=== PATIENT | female | born 1970 | race Caucasian/White ===

== ENCOUNTER 2016-07-28 10:27 | Emergency (ER) | payer OTHER ==
[~2016-07-28] VITALS: Ht 167.6 cm; Wt 90.5 kg
[~2016-07-28 10:27] MED LIST: PRENTAB26 PO; RANI75TA7 PO
[2016-07-28 10:29] VITALS: TEMP 36.6; Ht 167.6 cm; Wt 90.5 kg
--- NOTE | 2016-07-28 11:44 | DIAGNOSTIC IMAGING REPORT ---
LEFT KNEE 3 VIEWS CLINICAL HISTORY: pain s/p injury trauma. Pain. COMPARISON: None. DISCUSSION: The bones and joint spaces appear intact. There is no evidence of fracture, dislocation or bony disease. There is no evidence for soft tissue swelling. IMPRESSION: Negative study. Electronically signed by: Darrian Pereira M.D. 07/28/2016 11:42 AM Dictated Date/Time: 07/28/2016 11:42 AM
--- NOTE | 2016-07-28 12:28 | EMERGENCY ROOM VISIT NOTE ---
ED Visit Note First contact with patient: 10:37 Chief Complaint: LEFT Knee Injury History of Present Illness: This patient is a 45-year-old female who presents to the Emergency Department this morning for evaluation of their LEFT Knee Injury. Patient states that they injured the knee while getting out of her truck last evening and slipping on the ice. They report moderate pain over the medial aspect of the knee after twisting the knee. Pain is worse with ambulation. They deny any numbness or tingling into the distal extremity including the toes. They deny any pain extending into the affected foot or leg. Patient reports no previous fractures or surgeries of the affected knee. Patient rates her current discomfort as a 10/10. Patient has tried nothing for their pain to this point. Medications: Reviewed and discussed with the patient. Allergies: Sulfa drugs PMH: No pertinent past medical history. SHx: Patient is a 45-year-old female who lives locally. ROS: All pertinent positive and negative review of systems are appropriately documented in the History of Present Illness. Physical Exam: VITAL SIGNS - Vital signs and nursing notes were reviewed. GENERAL - 45-year-old female appearing her stated age and in noticeable discomfort throughout the exam. MUSCULOSKELETAL - LEFT knee without erythema, edema, and ecchymosis. Moderate tenderness to palpation appreciated over the lateral surface of the affected knee. +4/5 strength appreciated LEFT versus right secondary to patient discomfort. No posterior sag sign. RANGE OF MOTION: Greater than 90 Flexion with 0 Extension. PATELLAR APPREHENSION TEST: Unremarkable. VARUS/VALGUS STRESS: Medial pain with lateral force applied. CHRIS'S TEST: Without guarding. Strong Endpoint. ANTERIOR/POSTERIOR DRAWER TEST: Without guarding. Strong endpoint. NEUROLOGIC/VASCULAR - Neurovascularly intact distally with +3/5 dorsalis pedis pulses palpated bilaterally. Normal sensation to light and sharp touch appreciated distally. IMAGING: LEFT KNEE 3 VIEWS CLINICAL HISTORY: pain s/p injury trauma. Pain. COMPARISON: None. DISCUSSION: The bones and joint spaces appear intact. There is no evidence of fracture, dislocation or bony disease. There is no evidence for soft tissue swelling. IMPRESSION: Negative study. ED Course: Patient was seen and evaluated by myself. Patient declines for their complaint of pain. X-rays were obtained of the affected knee. Imaging results as above. Images were discussed and reviewed with the patient who acknowledges understanding. Patient was provided a Knee Immobilizer and Crutches for their comfort. Patient declines anything for pain control at home. Patient educated on worrisome symptoms for return visit to the emergency department. Patient with follow-up with their primary care provided in 4-5 days if their symptoms are not improving. Patient discharged to home in good condition. Impression: LEFT Knee Sprain - Likely MCL Sprain Discharge Instructions: You have been treated in the Emergency Department for a LEFT Knee Sprain - Likely MCL Sprain. For pain control, you can use the following wobf-dag-cidlpwl medicines (if >12 yo): - Regular strength (325mg/tab) Tylenol (acetaminophen) 2 tabs every 4-6 hours as needed. Do not exceed 12 tablets in a 24 hour period. Avoid taking more than 4 grams (4000 mg) of Tylenol per day. This includes any other sources of acetaminophen you may take on a regular basis. - Regular strength (200 mg/tab) Advil (ibuprofen) 1-2 tabs every 4-6 hours as needed. Do not exceed a dose of 3200 mg per day. If this is a recent injury (<24 hrs), ice can be applied to the area of pain for the first 3 days to help decrease pain and inflammation. Ice massages can be performed by freezing water in a paper cup, peeling back the cup to expose the ice and then massaging over the affected area. You have been provided the number for an Orthopaedic Surgeon. You should call this number as soon as possible to establish a follow-up visit from today's Emergency Department visit. Keep the knee brace in place until cleared by Orthopedics. Use the crutches you have been provided to keep ALL weight off of the knee until weight bearing is tolerable. Return to the Emergency Department if your current symptoms worsen despite treatment course outlined above. Current/Historical Medications No Active Prescriptions or Reported Meds Allergies Coded Allergies: Sulfa Drugs (Unverified Allergy, Unknown, 07/28/16) Vital Signs Date Time Temp Pulse Resp B/P Pulse Ox O2 Delivery O2 Flow Rate FiO2 07/28/16 12:33 76 18 106/85 99 07/28/16 10:29 36.6 94 18 131/84 99 Room Air Departure Information Impression Primary Impression: Sprain of knee Additional Impression: Knee MCL sprain Dispostion Home / Self-Care Condition GOOD Prescriptions No Active Prescriptions or Reported Meds Referrals Carrie Navarrete M.D. (PCP) Jose Mathur, DO Patient Instructions ED Sprain Knee Collateral Ligaments, [facility] Additional Instructions You have been treated in the Emergency Department for a LEFT Knee Sprain - Likely MCL Sprain. For pain control, you can use the following tgoq-hjm-mroqroj medicines (if >12 yo): - Regular strength (325mg/tab) Tylenol (acetaminophen) 2 tabs every 4-6 hours as needed. Do not exceed 12 tablets in a 24 hour period. Avoid taking more than 4 grams (4000 mg) of Tylenol per day. This includes any other sources of acetaminophen you may take on a regular basis. - Regular strength (200 mg/tab) Advil (ibuprofen) 1-2 tabs every 4-6 hours as needed. Do not exceed a dose of 3200 mg per day. If this is a recent injury (<24 hrs), ice can be applied to the area of pain for the first 3 days to help decrease pain and inflammation. Ice massages can be performed by freezing water in a paper cup, peeling back the cup to expose the ice and then massaging over the affected area. You have been provided the number for an Orthopaedic Surgeon. You should call this number as soon as possible to establish a follow-up visit from today's Emergency Department visit. Keep the knee brace in place until cleared by Orthopedics. Use the crutches you have been provided to keep ALL weight off of the knee until weight bearing is tolerable. Return to the Emergency Department if your current symptoms worsen despite treatment course outlined above. Problem Qualifiers Primary Impression: Sprain of knee Encounter type: initial encounter Involved ligament of knee: medial collateral ligament Laterality: left Qualified Codes: S83.412A - Sprain of medial collateral ligament of left knee, initial encounter Additional Impression: Knee MCL sprain Encounter type: initial encounter Laterality: left Qualified Codes: S83.412A - Sprain of medial collateral ligament of left knee, initial encounter
[2016-07-28 12:33] VITALS: BP 106/85; PULSE 76; O2SAT 99
== END 2016-07-28 12:35 | disposition home or self-care (01) ==
LOC: C.EDB 10:29 → C.EDD 12:35
DX: S83.412A Sprain of medial collateral ligament of left knee, initial encounter (principal); W00.0XXA Fall on same level due to ice and snow, initial encounter

== ENCOUNTER → 2016-09-17 | Outpatient (CLI) | payer OTHER ==
[2016-09-17 13:45] LABS: HEMATOCRIT 35.5 % (37-47); MEAN CELL VOLUME 69.2 fL (80-100); MEAN CORPUSCULAR HGB CONC 31.8 g/dl (32-36); MEAN PLATELET VOLUME 9.7 fL (7.4-10.4); PLATELET COUNT 328 K/uL (130-400); RED BLOOD COUNT 5.13 M/uL (4.2-5.4); WHITE BLOOD COUNT 8.77 K/uL (4.8-10.8)
[2016-09-17 14:12] LABS: LYME DISEASE AB IGG NEG (NEG)
[2016-09-17 14:13] LABS: LYME DISEASE AB IGM NEG (NEG)
== END | disposition home or self-care (01) ==
LOC: C.LABBC 10:59
PROVIDERS: ATTEND Internal Medicine
DX: R53.83 Other fatigue (principal); M25.50 Pain in unspecified joint; D64.9 Anemia, unspecified

== ENCOUNTER → 2016-10-28 | Outpatient (CLI) | payer OTHER ==
--- NOTE | 2016-10-28 10:02 | DIAGNOSTIC IMAGING REPORT ---
LEFT SHOULDER 3 VIEWS CLINICAL HISTORY: Left shoulder pain. FINDINGS: 3 views of left shoulder are obtained. No prior studies are available for comparison at the time of dictation. The Skeletal structures are well mineralized. No fracture or dislocation is seen. A small cyst is suggested in the clavicular head. The acromioclavicular and glenohumeral joints appear maintained. The overlying soft tissues are within normal limits. The visualized left lung parenchyma appears clear. IMPRESSION: No acute bony abnormality is seen in the left shoulder. Electronically signed by: Nigel Moise M.D. 10/28/2016 10:00 AM Dictated Date/Time: 10/28/2016 9:59 AM
== END | disposition home or self-care (01) ==
LOC: C.RAD1850 09:46
PROVIDERS: ATTEND Nurse Practitioner
DX: M25.512 Pain in left shoulder (principal)

== ENCOUNTER → 2016-12-02 | Outpatient (CLI) | payer OTHER ==
[2016-12-02 12:02] LABS: BASO % 0.6 %; BASO ABS # 0.06 K/uL (0-0.2); EOS % 1.9 %; IG% 0.1 %; LYMPH % 20.9 %; LYMPH ABS # 1.93 K/uL (1.2-3.4); MEAN CELL VOLUME 69.9 fL (80-100); MEAN CORPUSCULAR HEMOGLOBIN 20.8 pg (25-34); MEAN CORPUSCULAR HGB CONC 29.7 g/dl (32-36); MONO % 7.8 %; NEUT % 68.7 %; PLATELET COUNT 264 K/uL (130-400); RED BLOOD COUNT 5.01 M/uL (4.2-5.4); WHITE BLOOD COUNT 9.24 K/uL (4.8-10.8)
[2016-12-02 12:39] LABS: URINE APPEARANCE CLEAR (CLEAR); URINE BILIRUBIN NEG (NEG); URINE COLOR YELLOW; URINE EPITHELIAL CELL AUTO >30 /lpf (0-5); URINE NITRITE NEG (NEG); URINE PH 6.5 (4.5-7.5); URINE SPECIFIC GRAVITY 1.026 (1.000-1.030); UROBILINOGEN NEG (NEG); ZZUR CULT IF INDIC CLEAN CATCH YES
[2016-12-02 12:44] LABS: ALT/SGPT 19 U/L (12-78); AST/SGOT 12 U/L (15-37); BLOOD UREA NITROGEN 10 mg/dl (7-18); BUN/CREATININE RATIO 16.9 (10-20); CALCIUM 8.5 mg/dl (8.5-10.1); CARBON DIOXIDE 25 mmol/L (21-32); CHLORIDE 107 mmol/L (98-107); CREATININE 0.61 mg/dl (0.60-1.20); GLUCOSE 70 mg/dl (70-99); POTASSIUM 3.8 mmol/L (3.5-5.1); SODIUM 143 mmol/L (136-145)
[2016-12-02 12:44] LABS: MANUAL MICROSCOPIC REQUIRED? NO; REVIEW REQ? NO
[2016-12-02 12:59] LABS: ALKALINE PHOSPHATASE 56 U/L (45-117); FERRITIN 3.5 ng/ml (8.0-388.0)
[2016-12-02 13:25] LABS: COMPLETE YES; MICROCYTOSIS PRESENT
== END | disposition home or self-care (01) ==
LOC: C.LABBFT 09:32
PROVIDERS: ATTEND Internal Medicine
DX: R39.9 Unspecified symptoms and signs involving the genitourinary system (principal); R53.83 Other fatigue; D64.9 Anemia, unspecified; M25.50 Pain in unspecified joint

== ENCOUNTER → 2017-01-27 | Outpatient (CLI) | payer OTHER | END | disposition home or self-care (01) | LOC: C.LABSPEC 16:43 | PROVIDERS: ATTEND Internal Medicine | DX: R39.9 Unspecified symptoms and signs involving the genitourinary system (principal) ==

== ENCOUNTER → 2017-02-28 | Outpatient (CLI) | payer OTHER | END | disposition home or self-care (01) | LOC: C.PATHSPEC 17:37 | PROVIDERS: ATTEND Obstetrics & Gynecology | DX: N93.9 Abnormal uterine and vaginal bleeding, unspecified (principal) ==

== ENCOUNTER → 2017-04-07 | Outpatient (CLI) | payer OTHER ==
[2017-04-07 16:47] LABS: BASO % 0.8 %; BASO ABS # 0.06 K/uL (0-0.2); COMPLETE YES; EOS % 1.9 %; HEMATOCRIT 35.2 % (37-47); IG% 0.1 %; LYMPH % 27.3 %; LYMPH ABS # 2.06 K/uL (1.2-3.4); MEAN CELL VOLUME 70.8 fL (80-100); MEAN CORPUSCULAR HEMOGLOBIN 22.1 pg (25-34); MEAN CORPUSCULAR HGB CONC 31.3 g/dl (32-36); MEAN PLATELET VOLUME 9.9 fL (7.4-10.4); MONO % 10.2 %; NEUT % 59.7 %; PLATELET COUNT 307 K/uL (130-400); RED BLOOD COUNT 4.97 M/uL (4.2-5.4); WHITE BLOOD COUNT 7.54 K/uL (4.8-10.8)
[2017-04-07 16:57] LABS: ALT/SGPT 15 U/L (12-78); BLOOD UREA NITROGEN 9 mg/dl (7-18); BUN/CREATININE RATIO 11.3 (10-20); CARBON DIOXIDE 28 mmol/L (21-32); CHLORIDE 105 mmol/L (98-107); CREATININE 0.77 mg/dl (0.60-1.20); GLUCOSE 77 mg/dl (70-99); POTASSIUM 4.2 mmol/L (3.5-5.1); SODIUM 139 mmol/L (136-145)
[2017-04-07 17:00] LABS: ALKALINE PHOSPHATASE 45 U/L (45-117); AST/SGOT 13 U/L (15-37)
== END | disposition home or self-care (01) ==
LOC: C.LABBFT 14:21
PROVIDERS: ATTEND Internal Medicine
DX: Z00.00 Encounter for general adult medical examination without abnormal findings (principal); D64.9 Anemia, unspecified; M25.50 Pain in unspecified joint

== ENCOUNTER → 2017-04-20 | Outpatient (CLI) | payer OTHER ==
[2017-04-20 17:35] LABS: URINE APPEARANCE CLEAR (CLEAR); URINE BILIRUBIN NEG (NEG); URINE COLOR YELLOW; URINE EPITHELIAL CELL AUTO >30 /lpf (0-5); URINE NITRITE NEG (NEG); URINE PH 6.5 (4.5-7.5); URINE SPECIFIC GRAVITY 1.011 (1.000-1.030); UROBILINOGEN NEG (NEG)
[2017-04-20 17:37] LABS: MANUAL MICROSCOPIC REQUIRED? NO; REVIEW REQ? NO
== END | disposition home or self-care (01) ==
LOC: C.LABBFT 15:11
PROVIDERS: ATTEND Physician Assistant Medical
DX: R39.9 Unspecified symptoms and signs involving the genitourinary system (principal)

== ENCOUNTER → 2017-05-12 | Outpatient (CLI) | payer OTHER ==
--- NOTE | 2017-05-12 16:35 | DIAGNOSTIC IMAGING REPORT ---
LEFT CLAVICLE 2 VIEWS HISTORY: Left clavicle pain. COMPARISON: Left shoulder 10/28/2016. FINDINGS: There is no fracture or dislocation. Soft tissues are unremarkable. Mild AC joint arthrosis demonstrated by joint space narrowing tiny marginal osteophytes and small focus of cystic change within the distal clavicle. This remains unchanged. IMPRESSION: 1. No fractures identified within the left clavicle. 2. Mild AC joint arthrosis, unchanged. Electronically signed by: Josiah Patrick M.D. 05/12/2017 4:33 PM Dictated Date/Time: 05/12/2017 4:31 PM
== END | disposition home or self-care (01) ==
LOC: C.RAD1850 16:14
PROVIDERS: ATTEND Internal Medicine
DX: M89.8X1 Other specified disorders of bone, shoulder (principal)

== ENCOUNTER → 2017-08-17 | Outpatient (CLI) | payer OTHER ==
[2017-08-17 12:42] LABS: BASO % 0.7 %; BASO ABS # 0.05 K/uL (0-0.2); EOS ABS # 0.14 K/uL (0-0.5); HEMATOCRIT 35.3 % (37-47); IG# 0.01 K/uL (0.00-0.02); LYMPH % 26.3 %; LYMPH ABS # 1.82 K/uL (1.2-3.4); MEAN CELL VOLUME 70.3 fL (80-100); MEAN CORPUSCULAR HEMOGLOBIN 21.9 pg (25-34); MEAN CORPUSCULAR HGB CONC 31.2 g/dl (32-36); MEAN PLATELET VOLUME 9.9 fL (7.4-10.4); MONO % 7.5 %; MONO ABS # 0.52 K/uL (0.11-0.59); NEUT % 63.4 %; NEUT ABS # 4.39 K/uL (1.4-6.5); PLATELET COUNT 293 K/uL (130-400); RED CELL DISTRIBUTION WIDTH CV 16.5 % (11.5-14.5); RED CELL DISTRIBUTION WIDTH SD 42.3 fL (36.4-46.3); WHITE BLOOD COUNT 6.93 K/uL (4.8-10.8)
[2017-08-17 12:53] LABS: ALBUMIN 3.5 gm/dl (3.4-5.0); ALT/SGPT 16 U/L (12-78); BLOOD UREA NITROGEN 10 mg/dl (7-18); CALCIUM 8.9 mg/dl (8.5-10.1); CARBON DIOXIDE 26 mmol/L (21-32); CREATININE 0.79 mg/dl (0.60-1.20); GLUCOSE 81 mg/dl (70-99); SODIUM 139 mmol/L (136-145)
[2017-08-17 12:55] LABS: ALKALINE PHOSPHATASE 37 U/L (45-117); AST/SGOT 11 U/L (15-37); TOTAL PROTEIN 7.4 gm/dl (6.4-8.2)
== END | disposition home or self-care (01) ==
LOC: C.LABBFT 09:16
PROVIDERS: ATTEND Physician Assistant Medical
DX: R53.83 Other fatigue (principal)

== ENCOUNTER → 2017-11-09 | Outpatient (CLI) | payer OTHER ==
[2017-11-09 17:07] LABS: BASO % 0.6 %; BASO ABS # 0.05 K/uL (0-0.2); EOS % 1.2 %; HEMATOCRIT 38.4 % (37-47); IG# 0.01 K/uL (0.00-0.02); LYMPH % 22.4 %; LYMPH ABS # 1.81 K/uL (1.2-3.4); MEAN CELL VOLUME 72.7 fL (80-100); MEAN CORPUSCULAR HEMOGLOBIN 22.7 pg (25-34); MEAN CORPUSCULAR HGB CONC 31.3 g/dl (32-36); MEAN PLATELET VOLUME 9.8 fL (7.4-10.4); MONO % 6.8 %; MONO ABS # 0.55 K/uL (0.11-0.59); NEUT % 68.9 %; NEUT ABS # 5.55 K/uL (1.4-6.5); PLATELET COUNT 279 K/uL (130-400); RED CELL DISTRIBUTION WIDTH CV 16.6 % (11.5-14.5); RED CELL DISTRIBUTION WIDTH SD 44.4 fL (36.4-46.3); RETIC COUNT % 1.1 % (0.5-2.0); WHITE BLOOD COUNT 8.07 K/uL (4.8-10.8)
[2017-11-09 17:29] LABS: ALBUMIN 3.6 gm/dl (3.4-5.0); ALKALINE PHOSPHATASE 46 U/L (45-117); ALT/SGPT 18 U/L (12-78); AST/SGOT 15 U/L (15-37); BLOOD UREA NITROGEN 8 mg/dl (7-18); CALCIUM 9.4 mg/dl (8.5-10.1); CARBON DIOXIDE 25 mmol/L (21-32); CREATININE 0.83 mg/dl (0.60-1.20); GLUCOSE 70 mg/dl (70-99); POTASSIUM 3.8 mmol/L (3.5-5.1); SODIUM 137 mmol/L (136-145); TOTAL PROTEIN 8.1 gm/dl (6.4-8.2); TRANSFERRIN 469 mg/dl (200-360)
== END | disposition home or self-care (01) ==
LOC: C.LABBFT 11:45
PROVIDERS: ATTEND Physician Assistant Medical
DX: R53.83 Other fatigue (principal)

== ENCOUNTER → 2017-11-16 | Outpatient (CLI) | payer OTHER ==
[2017-11-21 09:13] LABS: METHYLMALONIC ACID 125 NMOL/L (87-318)
== END | disposition home or self-care (01) ==
LOC: C.LABBFT 12:53
PROVIDERS: ATTEND Physician Assistant Medical
DX: R79.9 Abnormal finding of blood chemistry, unspecified (principal)

== ENCOUNTER → 2018-01-24 | Outpatient (CLI) | payer OTHER ==
[~2018-01-24] MED LIST changes: +ERGO500037 PO; +ETONMIS VAGRING; +IRON INFUSION IV; -PRENTAB26 PO; -RANI75TA7 PO
== END | disposition home or self-care (01) ==
LOC: C.LABBFT 09:25
PROVIDERS: ATTEND Internal Medicine
DX: R39.9 Unspecified symptoms and signs involving the genitourinary system (principal)

== ENCOUNTER → 2018-02-13 | Outpatient (CLI) | payer OTHER ==
[2018-02-13 14:05] LABS: BASO % 0.5 %; BASO ABS # 0.04 K/uL (0-0.2); EOS ABS # 0.08 K/uL (0-0.5); HEMATOCRIT 40.3 % (37-47); HEMOGLOBIN 13.7 g/dL (12.0-16.0); IG# 0.02 K/uL (0.00-0.02); LYMPH % 27.4 %; LYMPH ABS # 2.14 K/uL (1.2-3.4); MEAN CELL VOLUME 80.4 fL (80-100); MEAN CORPUSCULAR HEMOGLOBIN 27.3 pg (25-34); MONO % 8.7 %; MONO ABS # 0.68 K/uL (0.11-0.59); NEUT % 62.1 %; NEUT ABS # 4.86 K/uL (1.4-6.5); PLATELET COUNT 197 K/uL (130-400); RED CELL DISTRIBUTION WIDTH CV 15.3 % (11.5-14.5); RED CELL DISTRIBUTION WIDTH SD 45.4 fL (36.4-46.3); WHITE BLOOD COUNT 7.82 K/uL (4.8-10.8)
== END | disposition home or self-care (01) ==
LOC: C.CCL 13:48
PROVIDERS: ATTEND Internal Medicine Hematology & Oncology
DX: D50.9 Iron deficiency anemia, unspecified (principal)

== ENCOUNTER 2023-05-25 09:10 | Inpatient (IN) ==
--- NOTE | 2023-05-16 11:41 | Anesthesiology Consultation ---
Date of Service May 16, 2023 Assessment & Plan (1) Encounter for pre-operative examination: Chart Review Chart Review: Acceptable Risk for Surgery and Patient NOT seen in Pre Admission Testing - Check BSG AM DOS - Check test AM DOS - Mounjaro instructions: Patient informed by PAT nursing to stop 7 days prior to surgery. Patient advised by PAT nursing to check with prescriber to see if alternative diabetic management changes recommended while holding Mounjaro- if so, patient to call back to PAT to update chart and discuss if any further preop medication instructions needed. Patient's last dose of Mounjaro will be 05/18/23- will be off Mounjaro x 7 days by DOS 05/25/23. -Infectious Disease screening: Per PAT nursing assessment on 05/16/23. Pt had vomiting, diarrhea, nausea on 05/12/23- resolved by 05/13/23. No known infectious disease contacts in past 10 days or upper respiratory infectious disease symptoms. No recent travel outside the country. Discussed with Dr. Dowd- no further testing or additional precautions needed from anesthesia standpoint. History Surgery Operation Date: 05/25/23 10:55 Proposed Procedures p Laparoscopic Partial Small Bowel Resection - Braulio Prajapati, DO Height/Weight Height: 5 ft 6 in Weight: 65.317 kg Allergies Allergy/AdvReac Type Severity Reaction Status Date / Time Sulfa (Sulfonamide Allergy Mild HIVES Verified 05/16/23 10:46 Antibiotics) Medications Home Medications Medication Instructions Recorded Confirmed Last Taken cholecalciferol (vitamin D3) 25 1,000 units PO QAM 04/13/19 05/16/23 12/10/22 mcg (1,000 unit) capsule levonorgestrel 21 mcg/24 hours (8 1 ea intrauterine CONTINOUS 02/27/22 05/16/23 12/14/22 yrs) 52 mg intrauterine device (Mirena) levothyroxine 50 mcg tablet 50 mcg PO DAILY #90 tabs 10/06/22 05/16/23 12/13/22 tirzepatide 5 mg/0.5 mL 7.5 ml subcut WK 10/25/22 05/16/23 12/10/22 subcutaneous pen injector (Mounjaro) Past Medical History Medical History Small bowel mass Hx of iron deficiency anemia Hx of migraines yrs ago History of COVID-19 2019- fatigue; resolved Mild obstructive sleep apnea NO DEVICE; weight loss has helped Hypothyroidism Prediabetes mounjaro weekly injections IUD (intrauterine device) in place Mirena 01/2020 Lyme disease hx 2018- treated Past Family History Family History Son Anxiety Diabetes Seizure Mother Cervical cancer Lung cancer Lung disease Grandmother (Maternal) Colorectal cancer Heart disease Father Hypertension Sister Hypertension Family/Other Myocardial infarction Uncle Pancreatic cancer Daughter Murmur, heart Other Cancer Denies family history of Ovarian cancer Breast cancer Past Surgical History Surgical History H/O colposcopy with cervical biopsy 10/19/2010 History of endometrial biopsy 02/28/2017 H/O colonoscopy with polypectomy 11/29/2017 History of nasal surgery H/O wisdom tooth extraction H/O section Social History Smoking Status: Never smoker Do You Dip or Chew Tobacco: No Hx Alcohol Use: No Hx Substance Use: No substance use type: does not use Lab Results Anesthesia Preop Results Results Anesthesia Widget: WBC 8.57 K/ul (4.8-10.8) 04/19/23 Hgb 12.9 g/dl (12.0-16.0) 04/19/23 Hct 38.5 % (37.0-47.0) 04/19/23 Plt 201 K/uL (130-400) 04/19/23 Na 138 mmol/L (136-145) 04/19/23 K 3.6 mmol/L (3.5-5.1) 04/19/23 Cl 105 mmol/L (98-107) 04/19/23 CO2 28 mmol/L (21-32) 04/19/23 BUN 6 mg/dl (6-23) 04/19/23 Creat 0.56 mg/dl (0.6-1.2) L 04/19/23 Glucose Level 110 mg/dl (70-99(Fasting)) H 04/19/23 Testing Electrocardiogram Date: 05/10/23 Findings: + NSR @ (68bpm) Incomplete RBBB Poor R wave progression ,consider anterior PA vs lead placement vs LVH (Discussed with Dr. Dowd- due nature of procedure- patient can proceed as scheduled; good functional status) Other Testing Abdomen/Pelvis CT 02/07/23= No bowel wall thickening or obstruction. Normal appendix. There is a 15 mm irregular enhancing nodule within the right lower quadrant mesentery which abuts a loop of bowel. This is concerning for a small bowel mass such as a carcinoid tumor. There is also a single enlarged right lower quadrant/ileocolic lymph node which could represent metastatic disease. Therefore, GI consultation and follow-up octreotide scan is recommended for further evaluation. A 15 mm enhancing nodule abutting the fundus of the uterus favors a pedunculated fibroid. An intrauterine device appears in good position.
--- NOTE | 2023-05-25 07:13 | History & Physical Report ---
Date of Service May 25, 2023 Assessment & Plan (1) Small bowel mass: Plan: This lesion is reasonable to resect both to obtain the diagnosis as well as remove the likely source of her RLQ pain. We discussed the risks which include bleeding infection anastomotic leak or stricture EKG PE IN CVA etc.....will attempt to perform laparoscopically but may need to make an incision to complete. questions answered. pt agreeable to proceed. (2) Mild obstructive sleep apnea: (3) Obesity: History of Present Illness Primary Care Provider: Carrie Navarrete MD Concepcion is here for a small bowel resection with a 2 cm mesenteric mass in the right lower quadrant. Abdominal pain. There is been no major status to her health issues since I had seen her last in the office. Allergies Allergy/AdvReac Type Severity Reaction Status Date / Time Sulfa (Sulfonamide Allergy Mild HIVES Verified 05/25/23 09:28 Antibiotics) Home Medications Medication Instructions Recorded Confirmed Type cholecalciferol (vitamin D3) 25 1,000 units PO QAM 04/13/19 05/25/23 History mcg (1,000 unit) capsule levonorgestrel 21 mcg/24 hours (8 1 ea intrauterine CONTINOUS 02/27/22 05/25/23 History yrs) 52 mg intrauterine device (Mirena) levothyroxine 50 mcg tablet 50 mcg PO DAILY #90 tabs 10/06/22 05/25/23 Rx tirzepatide 5 mg/0.5 mL 7.5 ml subcut WK 10/25/22 05/25/23 History subcutaneous pen injector (Mounjaro) Past Med/Surg History Medical History Small bowel mass Hx of iron deficiency anemia Hx of migraines yrs ago History of COVID-2019- fatigue; resolved Mild obstructive sleep apnea NO DEVICE; weight loss has helped Hypothyroidism Prediabetes mounjaro weekly injections IUD (intrauterine device) in place Mirena 01/2020 Lyme disease hx 2018- treated Surgical History H/O colposcopy with cervical biopsy 10/19/2010 History of endometrial biopsy 02/28/2017 H/O colonoscopy with polypectomy 11/29/2017 History of nasal surgery H/O wisdom tooth extraction H/O section Family History Son Anxiety Diabetes Seizure Mother Cervical cancer Lung cancer Lung disease Grandmother (Maternal) Colorectal cancer Heart disease Father Hypertension Sister Hypertension Family/Other Myocardial infarction Uncle Pancreatic cancer Daughter Murmur, heart Other Cancer Denies family history of Ovarian cancer Breast cancer Social History Smoking Status: Never smoker Second Hand Exposure: No; Do You Dip or Chew Tobacco: No; Tobacco Cessation Education Requested by Patient: No Hx Alcohol Use: No Hx Substance Use: No Preferred Language: Tongan Communication Ability: Effective Visual Impairment: No Limitations Hearing Ability: Normal Health Support Specialist Required: No Beliefs That Will Affect Care: None marital status: Single Current Living Situation: Family current occupational status: employed current occupation: [employer] Technician How many Children do You have: 3 Other Information That Helps Us Care for You: No Feels Safe at Home: Yes Safety Concerns: Feels Safe At This Time Childhood Exposure to Second-Hand Smoke: No Diet: regular caffeine: Yes during the past year weight has: decreased > 10 lbs Dental Care, Regularly: Yes Physical Activity Frequency: 1-2 Times per Week Seatbelt Use: always Sunscreen Use: Yes Assistive Devices: Contacts, Denture - Upper and Glasses Review of Systems All systems reviewed & are unremarkable except as noted in HPI & below Physical Exam Constitutional: WD/WN, vitals as above no acute distress and not ill appearing Eyes: PERRL, conjunctivae normal, anicteric sclerae EOM intact bilaterally ENMT: external ear and nose normal, oropharynx normal Ears: no hearing impairment Neck: trachea midline, no thyromegaly Respiratory: normal respiratory effort; no respiratory distress and does not use accessory muscles Cardiovascular: Rate/Rhythm: regular rate and regular rhythm Gastrointestinal (Abdomen): normal bowel sounds, soft, nontender, no hepatosplenomegaly Skin: no rashes, warm and dry Psychiatric: Orientation: alert, oriented x 3 and cooperative
[~2023-05-25 09:10] MED LIST changes: -ERGO500037 PO; -ETONMIS VAGRING; -IRON INFUSION IV; +LACTATED RINGER'S 1,000 ML IV SCH; +ceFAZolin 2000MG 2,000 MG/15 ML SYR IV SCH
[2023-05-25] MEDS ORDERED: ACETAMINOPHEN 1000 MG/100 ML IV IV ONE (10:03)
[2023-05-25] MEDS ORDERED: FAMOTIDINE/PF 20 MG/2 ML VIAL IV ONE (10:04)
[2023-05-25] MEDS ORDERED: SCOPOLAMINE 1 MG TDSY TD ONE (10:04)
[2023-05-25] MEDS ORDERED: MIDAZOLAM HCL 1 MG/ML 2ML VIAL ONE (10:13)
[2023-05-25] MEDS ORDERED: fentaNYL citrate PF 100 MCG/2 ML VIAL ONE (10:13)
[2023-05-25] MEDS ORDERED: PROPOFOL IV EMULSION 10 MG/ML 20 ML VIAL IV ONE (10:15)
[2023-05-25] MEDS ORDERED: ROCURONIUM BROMIDE 10 MG/ML 5 ML VIAL IV ONE (10:15)
[2023-05-25] MEDS ORDERED: LIDOCAINE 2% 2 ML VIAL/AMP(20MG/ML) INFIL ONE (10:15)
[2023-05-25] MEDS ORDERED: SUCCINYLCHOLINE CHLORIDE 20 MG/ML 10 ML VIAL IV ONE (10:15)
[2023-05-25] MEDS ORDERED: ePHEDrine sulfate 50 MG/ML AMP IV PRN (10:23)
[2023-05-25] MEDS ORDERED: HYDROmorphone INJ 1 MG/ML SYRINGE IV PRN (10:23)
[2023-05-25] MEDS ORDERED: ATROPINE SULFATE 0.1 MG/ML 10ML SYR IV PRN (10:23)
[2023-05-25] MEDS ORDERED: ONDANSETRON INJ 2 MG/ML 2 ML VIAL IV PRN ×2 (10:23→15:45)
[2023-05-25] MEDS ORDERED: BUPIVACAINE/EPINEPHRINE 0.5% MPF 1:200,000 30 ML VIAL ONE (11:05)
[2023-05-25] MEDS ORDERED: ePHEDrine sulfate 50 MG/5 ML SYR ONE (11:53)
[2023-05-25] MEDS ORDERED: PHENYLEPHRINE 100MCG/ML 10ML SYR IV ONE (11:53)
[2023-05-25] MEDS ORDERED: SUGAMMADEX SODIUM 200 MG/2 ML VIAL IV ONE (12:11)
[2023-05-25] MEDS ORDERED: KETOROLAC 30 MG/ML VIAL ONE (12:12)
[2023-05-25] MEDS: fentaNYL citrate PF 100 MCG/2 ML VIAL IV PRN ×4 (13:30→13:55)
--- NOTE | 2023-05-25 14:18 | Anesthesiology Progress Note ---
Date of Service May 25, 2023 Anesthesia Post Procedure Vital Signs Vital Signs: Temp Pulse Pulse Resp BP Pulse Ox O2 Del Method 05/25/23 13:40 86 16 124/70 100 Room Air 05/25/23 13:30 70 18 128/73 100 Room Air 05/25/23 13:20 72 19 132/73 100 Oxymask 05/25/23 13:10 83 20 139/80 100 Oxymask 05/25/23 13:04 36.1 C L 89 21 140/90 100 Oxymask 05/25/23 09:31 36.5 C 95 H 20 147/82 H 99 Room Air O2 Flow Rate 05/25/23 13:40 05/25/23 13:30 05/25/23 13:20 3 05/25/23 13:10 6 05/25/23 13:04 8 05/25/23 09:31 Pain Intensity Abdomen: Pain Intensity: 3 Transfer of Care Handoff Completed per policy Notes Mental Status: alert / awake / arousable Patient Amnestic to Procedure: Yes Nausea / Vomiting: adequately controlled Pain: adequately controlled Airway Patency, RR, SpO2: stable & adequate BP & HR: stable & adequate Hydration State: stable & adequate Anesthetic Complications: no major complications apparent and Pt Satisfied with anesthetic care
[2023-05-25] MEDS ORDERED: GLUCOSE 40% GEL 15 GM TUBE PO PRN (15:45)
[2023-05-25] MEDS ORDERED: PHARMACY GLYCEMIC MGMT CONSULT PRN (15:45)
[2023-05-25] MEDS ORDERED: GLUCAGON FOR INJ 1 MG VIAL SQ PRN (15:45)
[2023-05-25] MEDS ORDERED: DEXTROSE 50% 50 ML SYRINGE IV PRN (15:45)
[2023-05-25] MEDS ORDERED: GLUCOSE 10 TAB/TUBE PO PRN (15:45)
[2023-05-25] MEDS ORDERED: HYDROmorphone INJ 0.5 MG/0.5 ML SYR IV PRN ×2 (15:45)
[2023-05-25] MEDS: LACTATED RINGER'S 1,000 ML IV SCH (16:00)
[2023-05-25] MEDS ORDERED: INFLUENZA VIRUS QUADRIVALENT VACCINE (IIV4) 0.5 ML SYR IM ONE (17:08)
[2023-05-25] MEDS: INSULIN ASPART PER UNIT CHARGE SC SCH ×2 (17:32→20:51)
--- NOTE | 2023-05-25 19:06 | Operative Report ---
PG Post Operative Report Pre & Post Diagnosis Operation Date: 05/25/23 10:55 Pre-Op Diagnosis: Small Bowel Mass Post-Op Diagnosis: Small Bowel Mass I identified the patient and participated in the time-out.: Yes Procedure Operation Date: 05/25/23 10:55 Actual Procedures p Laparoscopic Partial Small Bowel Resection(Not Applicable) - Braulio Prajapati DO Surgeon Braulio Prajapati DO [employer] cristiana webber Estimated Blood Loss 10 Findings Consistent with Post-Op Diagnosis Specimens portion of small bowel Description of Procedure After informed consent was obtained the patient was taken to the operating room. After successful intubation a Mendoza catheter was placed and the abdomen was sterilely prepped and draped in usual fashion. Supraumbilical incision was made with an 11 blade scalpel. This was carried down through the soft tissue using cautery. The anterior fascia was opened using cautery and two #0 Vicryl stay s utures were placed. Peritoneum was elevated with 2 hemostats and incised under direct vision using a Metzenbaum scissor. Finger sweep was formed. A 12 mm Avila trocar was placed in the abdomen was insufflated to 18 mm of mercury. the laparoscope was inserted. Initially no abnormalities were identified. A suprapubic 5 mm port and a left lower quadrant 5 mm port were placed under direct vision. I began by starting at the cecum and running the small bowel backwards. After several feet I readily encountered the mass seen on CT scan. The bowel was nice and floppy and near the midline. I therefore grasped it through the supraumbilical trocar site. We extended this incision superiorly for several centimeters including the fascia. I was then able to deliver the mass and the small portion of associated small bowel and exteriorized it. I used a AIME brown cartridge linear stapler to transect the small bowel about 5 or 6 cm distal to the mass and 5 or 6 cm proximal. There was no palpable or visible lymphadenopathy. I took down the mesentery using the harmonic scalpel and sent the specimen to pathology. It was a rather firm contracted mass. Next I performed a [id number] small bowel anastomosis again using a AIME brown cartridge linear stapler. Common enterotomy was closed using a TA stapling device. 3-[address] a crotch stitch. The mesenteric defect was closed using 2-0 Vicryl in a running fashion. The anastomosis was pink and viable and widely patent. It was placed back into the abdomen. The fascia was closed using #1 PDS in running fashion. The wound was irrigated and closed using 3-0 Vicryl for deep layers and 4 Monocryl for skin. The smaller trocar sites were also closed using 4-0 Monocryl. Marcaine with epinephrine were injected around them for postoperative analgesia and skin glue used as a dressing. Patient was awakened extubated and transferred to recovery in stable addition. My nurse practitioner was present for the entire case. She was instrumental in running the camera assisting with the small bowel resection, assisting with the anastomosis, wound closure and dressing placement. I attest to the content of the Intraoperative Record and any orders documented therein. Any exceptions are noted below.
[2023-05-25] MEDS: oxyCODONE HCL IR 5 MG TAB (IMMEDIATE RELEASE) PO PRN (19:17)
[2023-05-25] MEDS: ceFAZolin 2000MG 2,000 MG/15 ML SYR IV SCH (19:18)
[2023-05-26] MEDS: ceFAZolin 2000MG 2,000 MG/15 ML SYR IV SCH ×2 (03:21→10:21)
[2023-05-26] MEDS: LACTATED RINGER'S 1,000 ML IV SCH ×2 (03:21→15:52)
[2023-05-26] MEDS: oxyCODONE HCL IR 5 MG TAB (IMMEDIATE RELEASE) PO PRN ×5 (03:26→21:36)
[2023-05-26] MEDS: LEVOTHYROXINE SODIUM 50 MCG TABLET PO SCH (07:19)
[2023-05-26 08:31] LABS: Basophils # (auto) 0.04 K/uL (0.00-0.20); Basophils % (auto) 0.3 %; Eosinophils # (auto) 0.02 K/uL (0.00-0.50); Eosinophils % (auto) 0.1 %; Hematocrit (blood only) 32.2 % (37.0-47.0); Hemoglobin 11.1 g/dl (12.0-16.0); Immature Granulocytes # (auto) 0.07 K/uL (0.01-0.20); Immature Granulocytes % (auto) 0.5 %; Lymphocytes # (auto) 1.67 K/uL (1.20-3.40); Lymphocytes % (auto) 11.9 %; Mean Corpuscular Hemoglobin 28.5 pg (25.0-34.0); Mean Corpuscular Hgb Conc 34.5 g/dL (32.0-36.0); Mean Corpuscular Volume 82.6 fL (80.0-100.0); Mean Platelet Volume 10.4 fL (9.4-12.4); Monocytes # (auto) 0.93 K/uL (0.11-0.59); Monocytes % (auto) 6.6 %; Neutrophils # (auto) 11.31 K/uL (1.40-6.50); Neutrophils % (auto) 80.6 %; Platelet Count 154 K/uL (130-400); RDW Standard Deviation 39.4 fL (36.4-46.3); White Blood Count 14.04 K/ul (4.8-10.8)
[2023-05-26 08:45] LABS: BUN Creatinine Ratio 13.4 (10-20); Calcium 8.5 mg/dl (8.6-10.3); Creatinine Clr Calc Pharmacy 91.9 ml/min; Est GFR (African American) 117.1 ml/min; Est GFR (Non-African American) 101.1 ml/min; Potassium 3.6 mmol/L (3.5-5.1)
[2023-05-26] MEDS: INSULIN ASPART PER UNIT CHARGE SC SCH ×4 (08:54→21:38)
[2023-05-26 08:59] LABS: Estimated Average Glucose 105 mg/dl; Hemoglobin A1C 5.3 % (4.5-5.6)
--- NOTE | 2023-05-26 09:13 | Surgery Progress Note ---
Date of Service May 26, 2023 Assessment & Plan (1) S/P small bowel resection: Plan: POD 1 Patient reports abdominal , added IV tylenol to pains , pt reports she was given PO pain meds that help some, Has IV pain meds ordered Denies flatus, Cp, SOB, N/V Has been up OOB to toilet and short walk in [place] Encouraged ambulation Abd. tender, soft nondistented , dermabond to post operative sites CDI , +BS Tolerating clear diet VSS temp mildly elevated at 99 Will continue to montior as above. doing as expected await return of bowel fx. stay on clears for now Dr. Arcos covering for weekend. Admission and Anticipated Discharge Date Admission Date: May 25, 2023 Subjective Patient reports abdominal Denies flatus, Cp, SOB, N/V Has been up OOB to toilet and short walk in [place] Review of Systems Respiratory: no dyspnea Cardiovascular: no chest pain and no syncope Gastrointestinal: + abdominal pain; no bloating, no nausea and no vomiting Genitourinary: briseno removed this AM Musculoskeletal: no muscle weakness Integumentary: post operative surgical sites covered with dermabond Physical Exam Physical Exam: alert oriented pleasant Constitutional: well developed, cooperative and comfortable; no acute distress Respiratory: normal respiratory effort, lungs clear to auscultation Cardiovascular: Rate/Rhythm: regular rate and regular rhythm Gastrointestinal (Abdomen): Inspection/Auscultation: normal bowel sounds and + abdominal surgical incision; abdomen not distended Percussion/Palpation: + abdomen tender and abdomen soft; no guarding Musculoskeletal: no cyanosis or clubbing, extremities motor strength 5/5 Results & Data Vital Signs (Past 12 Hours) Vital Signs Temp Pulse Resp BP Pulse Ox O2 Del Method 05/26/23 07:13 99.0 F 73 16 111/60 97 Room Air 05/26/23 03:22 98.8 F 70 16 109/62 96 Room Air 05/25/23 23:14 98.1 F 80 18 109/64 96 Room Air PG Care Time/CCT Total # of Minutes Spent Total Time Spent with Patient: Total time spent is greater than 50% in coordination of care (as documented) at patient's floor/unit and/or counseling patient: Coding Level of Care Code 19167 Post Operative Follow-Up Diagnoses S/P small bowel resection Z90.49
[2023-05-26] MEDS: ACETAMINOPHEN 1,000 MG/100 ML VIAL IV SCH ×2 (10:21→17:05)
--- NOTE | 2023-05-26 10:59 | Pharmacy Report ---
Pharmacy Glycemic Short Note 2 - Date of Service May 26, 2023 - Glycemic Short BSG Results (Last 24 hours): 05/25/23 05/25/23 05/26/23 16:38 20:48 07:41 Glucose POC Glucose 90 114 H 96 05/26/23 07:56 Glucose 87 POC Glucose OUTPATIENT ANTIDIABETIC REGIMEN: * Mounjaro 7.5mg QWK * HbA1c 5.3% (05/26/23) ASSESSMENT: * Concepcion is a 52 YOF admitted status post small bowel resection with a history of pre-diabetes (A1c 5.6% 10/04/22). Pharmacy has been consulted to assist with glycemic management while in patient. * Fasting BSG this AM below goal range, no insulin administered in hospital, wi ll hold on basal for now. * Clear liquid diet ordered, appears to be tolerating per provider documentation, pharmacy will follow while diet advances * Novolog with loose correction factor ordered. PLAN FOR INPATIENT GLYCEMIC CONTROL: * Hold outpatient oral diabetes medications * Basal insulin * Monitor as diet advances * Bolus insulin * NovoLog per scale ACHS or Q6hrs while NPO * Goal Range: Low 110 mg/dL - High 140 mg/dL * Correction Factor: 40 mg/dL/unit * Carbohydrate Ratio: none
[2023-05-26] MEDS ORDERED: SODIUM CHLORIDE 0.9% 500 ML IV ONE (15:15)
[2023-05-27] MEDS: ACETAMINOPHEN 1,000 MG/100 ML VIAL IV SCH ×3 (01:17→16:32)
[2023-05-27] MEDS: LACTATED RINGER'S 1,000 ML IV SCH (03:57)
[2023-05-27] MEDS: oxyCODONE HCL IR 5 MG TAB (IMMEDIATE RELEASE) PO PRN ×4 (04:07→22:33)
[2023-05-27] MEDS: CARBOHYDRATES FOR HYPOGLYCEMIA PO PRN ×2 (08:00→08:21)
[2023-05-27 08:14] LABS: Basophils # (auto) 0.04 K/uL (0.00-0.20); Basophils % (auto) 0.5 %; Eosinophils # (auto) 0.07 K/uL (0.00-0.50); Hematocrit (blood only) 33.1 % (37.0-47.0); Immature Granulocytes # (auto) 0.02 K/uL (0.01-0.20); Immature Granulocytes % (auto) 0.3 %; Lymphocytes # (auto) 1.95 K/uL (1.20-3.40); Lymphocytes % (auto) 26.7 %; Mean Corpuscular Hemoglobin 28.5 pg (25.0-34.0); Mean Corpuscular Hgb Conc 33.2 g/dL (32.0-36.0); Mean Corpuscular Volume 85.8 fL (80.0-100.0); Mean Platelet Volume 10.2 fL (9.4-12.4); Monocytes # (auto) 0.53 K/uL (0.11-0.59); Monocytes % (auto) 7.3 %; Neutrophils # (auto) 4.68 K/uL (1.40-6.50); Neutrophils % (auto) 64.2 %; Platelet Count 132 K/uL (130-400); RDW Coefficient of Variation 13.1 % (11.5-14.5); RDW Standard Deviation 40.1 fL (36.4-46.3); Red Blood Count 3.86 M/uL (4.20-5.40); White Blood Count 7.29 K/ul (4.8-10.8)
[2023-05-27 08:23] LABS: BUN Creatinine Ratio 12.1 (10-20); Calcium 8.3 mg/dl (8.6-10.3); Creatinine Clr Calc Pharmacy 106.2 ml/min; Est GFR (African American) 122.8 ml/min; Potassium 3.8 mmol/L (3.5-5.1)
[2023-05-27] MEDS: LEVOTHYROXINE SODIUM 50 MCG TABLET PO SCH (08:34)
[2023-05-27] MEDS: INSULIN ASPART PER UNIT CHARGE SC SCH ×4 (08:34→21:06)
--- NOTE | 2023-05-27 09:59 | Surgery Progress Note ---
Date of Service May 27, 2023 Assessment & Plan (1) S/P small bowel resection: Plan: Patient is 2 days postop laparoscopic small bowel resection the path is pending She is progressing well tolerating her diet Will advance her diet once her bowel function returns hopefully by tomorrow Admission and Anticipated Discharge Date Admission Date: May 25, 2023 Subjective No real complaints voiced she is resting comfortably tolerating her liquids no bowel activity noted yet Physical Exam Physical Exam: Alert coherent Abdomen is completely benign except she does have some discomfort and guarding above the incision the incision is intact Results & Data Vital Signs (Past 12 Hours) Vital Signs Temp Pulse Resp BP Pulse Ox O2 Del Method 05/27/23 07:35 36.8 C 72 16 107/65 94 Room Air
[2023-05-27] MEDS: ACETAMINOPHEN 325 MG TAB PO PRN (13:06)
[2023-05-28] MEDS: ACETAMINOPHEN 1,000 MG/100 ML VIAL IV SCH ×3 (01:13→17:54)
[2023-05-28] MEDS: oxyCODONE HCL IR 5 MG TAB (IMMEDIATE RELEASE) PO PRN ×3 (05:43→19:57)
[2023-05-28 07:39] LABS: Basophils # (auto) 0.05 K/uL (0.00-0.20); Basophils % (auto) 0.7 %; Eosinophils # (auto) 0.16 K/uL (0.00-0.50); Eosinophils % (auto) 2.4 %; Hematocrit (blood only) 35.4 % (37.0-47.0); Hemoglobin 11.8 g/dl (12.0-16.0); Immature Granulocytes # (auto) 0.02 K/uL (0.01-0.20); Immature Granulocytes % (auto) 0.3 %; Lymphocytes # (auto) 1.93 K/uL (1.20-3.40); Lymphocytes % (auto) 28.8 %; Mean Corpuscular Hemoglobin 28.1 pg (25.0-34.0); Mean Corpuscular Hgb Conc 33.3 g/dL (32.0-36.0); Mean Corpuscular Volume 84.3 fL (80.0-100.0); Mean Platelet Volume 10.3 fL (9.4-12.4); Monocytes # (auto) 0.53 K/uL (0.11-0.59); Monocytes % (auto) 7.9 %; Neutrophils # (auto) 4.02 K/uL (1.40-6.50); Neutrophils % (auto) 59.9 %; Platelet Count 147 K/uL (130-400); RDW Coefficient of Variation 12.6 % (11.5-14.5); RDW Standard Deviation 38.2 fL (36.4-46.3); White Blood Count 6.71 K/ul (4.8-10.8)
[2023-05-28 07:59] LABS: BUN Creatinine Ratio 10.9 (10-20); Calcium 8.4 mg/dl (8.6-10.3); Est GFR (Non-African American) 107.8 ml/min; Potassium 3.7 mmol/L (3.5-5.1)
[2023-05-28] MEDS: CARBOHYDRATES FOR HYPOGLYCEMIA PO PRN ×2 (08:10→11:40)
[2023-05-28] MEDS: LEVOTHYROXINE SODIUM 50 MCG TABLET PO SCH (08:35)
[2023-05-28] MEDS: INSULIN ASPART PER UNIT CHARGE SC SCH ×4 (08:36→20:45)
--- NOTE | 2023-05-28 12:39 | Surgery Progress Note ---
Date of Service May 28, 2023 Assessment & Plan (1) S/P small bowel resection: Plan: 3 days postop laparoscopic small bowel resection Overall she is doing well the path is pending Will plan to increase her diet and increase activity Plan Increase diet and activity Admission and Anticipated Discharge Date Admission Date: May 25, 2023 Subjective Overall she is doing well she denies any abdominal discomfort the minor discomfort she had yesterday above the incision seems to be subsiding she is passing flatus has not had a bowel movement she has been up and around She is tolerating a liquid diet Physical Exam Physical Exam: Alert coherent resting comfortably without any distress The abdomen is completely benign she has minimal guarding above the incision which is healing appropriately without any drainage or cellulitis Results & Data Vital Signs (Past 12 Hours) Vital Signs Temp Pulse Resp BP Pulse Ox O2 Del Method 05/28/23 07:47 36.7 C 65 16 124/78 94 Room Air Laboratory Results Fasting glucose noted
--- NOTE | 2023-05-28 13:41 | Pharmacy Report ---
Pharmacy Glycemic Sign Off Nt - Date of Service May 28, 2023 - Assessment & Plan ASSESSMENT: * Pharmacy was consulted by DANE Smith on 05/25/23 for glycemic control and to write orders per [facility] inpatient glycemic control protocol. * Major changes made by pharmacy to antidiabetic regimen include: * addition of loose Novolog (correctional only) * Patient has been receiving/requiring 0 units of insulin per day for adequate glycemic control * BSGs ranging 59-96 mg/dl * Regimen has only required minor adjustments over the past 48hrs to achieve this level of control * Do not anticipate insulin needs will change significantly even as diet is advanced. PLAN FOR INPATIENT GLYCEMIC CONTROL: No changes needed to current regimen. * Hold basal insulin * Continue NovoLog per scale ACHS/Q6hrs while NPO * Goal range = 120-160 mg/dl * CF = 40 mg/dl/unit * No carb coverage * Pharmacy is signing off of glycemic consult and will no longer be making adjustments to inpatient regimen. Please feel free to re-consult if needed. Thank you.
[2023-05-29] MEDS: ACETAMINOPHEN 1,000 MG/100 ML VIAL IV SCH (00:52)
[2023-05-29 07:41] LABS: Basophils # (auto) 0.06 K/uL (0.00-0.20); Basophils % (auto) 0.9 %; Eosinophils # (auto) 0.21 K/uL (0.00-0.50); Eosinophils % (auto) 3.3 %; Hematocrit (blood only) 35.3 % (37.0-47.0); Hemoglobin 12.1 g/dl (12.0-16.0); Immature Granulocytes # (auto) 0.02 K/uL (0.01-0.20); Immature Granulocytes % (auto) 0.3 %; Lymphocytes # (auto) 1.74 K/uL (1.20-3.40); Lymphocytes % (auto) 27.1 %; Mean Corpuscular Hemoglobin 28.2 pg (25.0-34.0); Mean Corpuscular Hgb Conc 34.3 g/dL (32.0-36.0); Mean Corpuscular Volume 82.3 fL (80.0-100.0); Mean Platelet Volume 10.4 fL (9.4-12.4); Monocytes # (auto) 0.56 K/uL (0.11-0.59); Monocytes % (auto) 8.7 %; Neutrophils # (auto) 3.82 K/uL (1.40-6.50); Neutrophils % (auto) 59.7 %; Platelet Count 165 K/uL (130-400); RDW Coefficient of Variation 12.6 % (11.5-14.5); RDW Standard Deviation 38.2 fL (36.4-46.3); Red Blood Count 4.29 M/uL (4.20-5.40); White Blood Count 6.41 K/ul (4.8-10.8)
[2023-05-29] MEDS: CARBOHYDRATES FOR HYPOGLYCEMIA PO PRN (07:52)
[2023-05-29] MEDS: INSULIN ASPART PER UNIT CHARGE SC SCH ×4 (07:52→20:49)
[2023-05-29] MEDS: LEVOTHYROXINE SODIUM 50 MCG TABLET PO SCH (07:55)
[2023-05-29] MEDS: oxyCODONE HCL IR 5 MG TAB (IMMEDIATE RELEASE) PO PRN ×3 (07:59→20:47)
[2023-05-29 08:14] LABS: BUN Creatinine Ratio 7.1 (10-20); Est GFR (African American) 124.2 ml/min; Est GFR (Non-African American) 107.2 ml/min; Potassium 3.5 mmol/L (3.5-5.1)
--- NOTE | 2023-05-29 08:53 | Surgery Progress Note ---
Date of Service May 29, 2023 Assessment & Plan (1) S/P small bowel resection: Plan: She continues to do as expected Awaiting full return of bowel function Will consider discharge tomorrow if she continues to improve Pathology pending Admission and Anticipated Discharge Date Admission Date: May 25, 2023 Subjective Patient seen. She continues to improve daily. She is passing gas but no bowel movement yet. She is tolerating a full liquid diet. She has no nausea. Her pain is reasonably managed. Physical Exam Physical Exam: Alert no acute distress Abdomen soft with expected tenderness. Incisions look good Results & Data Vital Signs (Past 12 Hours) Vital Signs Temp Pulse Resp BP Pulse Ox O2 Del Method 05/29/23 07:45 37 C 62 19 130/72 96 Room Air PG Care Time/CCT Total # of Minutes Spent Total Time Spent with Patient: Total time spent is greater than 50% in coordination of care (as documented) at patient's floor/unit and/or counseling patient: Coding Level of Care Code 66302 Post Operative Follow-Up Diagnoses S/P small bowel resection Z90.49
[2023-05-29] MEDS ORDERED: POTASSIUM CHLORIDE CRTAB 20 MEQ TABCR PO STA (15:43)
[2023-05-30] MEDS: oxyCODONE HCL IR 5 MG TAB (IMMEDIATE RELEASE) PO PRN ×3 (01:07→20:41)
[2023-05-30 07:10] LABS: Basophils # (auto) 0.04 K/uL (0.00-0.20); Basophils % (auto) 0.7 %; Eosinophils # (auto) 0.31 K/uL (0.00-0.50); Eosinophils % (auto) 5.4 %; Hematocrit (blood only) 36.3 % (37.0-47.0); Hemoglobin 11.8 g/dl (12.0-16.0); Immature Granulocytes # (auto) 0.01 K/uL (0.01-0.20); Immature Granulocytes % (auto) 0.2 %; Lymphocytes # (auto) 1.62 K/uL (1.20-3.40); Lymphocytes % (auto) 28.1 %; Mean Corpuscular Hemoglobin 27.9 pg (25.0-34.0); Mean Corpuscular Hgb Conc 32.5 g/dL (32.0-36.0); Mean Corpuscular Volume 85.8 fL (80.0-100.0); Monocytes # (auto) 0.49 K/uL (0.11-0.59); Monocytes % (auto) 8.5 %; Neutrophils # (auto) 3.29 K/uL (1.40-6.50); Neutrophils % (auto) 57.1 %; Platelet Count 180 K/uL (130-400); RDW Standard Deviation 40.1 fL (36.4-46.3); Red Blood Count 4.23 M/uL (4.20-5.40); White Blood Count 5.76 K/ul (4.8-10.8)
[2023-05-30 07:33] LABS: BUN Creatinine Ratio 6.5 (10-20); Calcium 9.3 mg/dl (8.6-10.3); Creatinine Clr Calc Pharmacy 99.4 ml/min; Est GFR (African American) 120.2 ml/min; Est GFR (Non-African American) 103.7 ml/min; Potassium 3.4 mmol/L (3.5-5.1)
[2023-05-30] MEDS ORDERED: POTASSIUM CHLORIDE CRTAB 20 MEQ TABCR PO STA ×2 (07:34→08:25)
[2023-05-30] MEDS: LEVOTHYROXINE SODIUM 50 MCG TABLET PO SCH (07:41)
[2023-05-30] MEDS: INSULIN ASPART PER UNIT CHARGE SC SCH ×4 (08:13→20:37)
[2023-05-30] MEDS ORDERED: KETOROLAC 30 MG/ML VIAL IV ONE (08:18)
[2023-05-30] MEDS ORDERED: LACTATED RINGER'S 1,000 ML IV ONE (08:21)
[2023-05-30] MEDS: IBUPROFEN 600 MG TAB PO SCH ×2 (08:31→15:45)
--- NOTE | 2023-05-30 08:33 | Surgery Progress Note ---
Date of Service May 30, 2023 Assessment & Plan (1) S/P small bowel resection: Plan: Postoperative day #5 Doing okay. Will give her an IV fluid bolus as well as some suppositories to try and assist with a bowel movement Continue on full liquids for now Will add ibuprofen and give 1 dose of Toradol. Hopefully we can decrease her narcotic use. Hopeful discharge tomorrow Pathology still pending Admission and Anticipated Discharge Date Admission Date: May 25, 2023 Subjective Patient seen. She is doing okay. She is having moderate pain at her periumbilical incision otherwise doing okay. No bowel function yet. She is tolerating full liquid diet without any nausea Physical Exam Physical Exam: Alert. No acute distress Incisions all look good. Her abdomen is nondistended Results & Data Vital Signs (Past 12 Hours) Vital Signs Temp Pulse Resp BP Pulse Ox O2 Del Method 05/30/23 07:43 67 104/66 97 Room Air 05/30/23 07:30 36.6 C 74 18 94/58 L 97 Room Air PG Care Time/CCT Total # of Minutes Spent Total Time Spent with Patient: Total time spent is greater than 50% in coordination of care (as documented) at patient's floor/unit and/or counseling patient: Coding Level of Care Code 74809 Post Operative Follow-Up Diagnoses S/P small bowel resection Z90.49
--- NOTE | 2023-05-30 09:08 | Hospitalist Consultation ---
Date of Consultation May 30, 2023 Assessment & Plan (1) Right ear pain: -Fluid collection without signs of infection - No fevers, chills, WBC 5.76 and patient has not been given antibiotics - Will treat with allergy medicine, patient usually uses tanvir D at home - Tanvir and Pseudoephedrine ordered (2) S/P small bowel resection: 05/[address] Prajapati Plan Will check on patient in the AM, but should prevent her from discharging. Thank you for allowing us to participate in the care of this patient, please reach out with any questions or concerns Supervising Physician Co-Signing Physician Notes During face to face encounter, I obtained a brief physical examination, discussed hospital stay with patient. Medicien was consulted for ear pain. I discussed plan of care with FRANTZ Rao and patient. I reviewed above note and agree with it except for the following: Patient will do a trial of tanvir D as she reports this helps with her pain. Exam did not show signs of infection. History of Present Illness Reason for Consultation: Ear pain Attending Physician: Braulio Prajapati, DO History of Present Illness Ms Dueñas is admitted to the hospital For small bowel mass, status post resection with Dr. Zamorano on 05/25. hospitalist service consulted for ear pain. patient states starting last night she had pain in her ear and at the base of her ear. Last night was radiating towards her eyes and nose, but this has not continued. States that she frequently gets ear infections and has not a lot of issues with congestion. she usually takes allergy medicine for this and that helps her symptom Currently denies runny nose or stuffy nose or feeling congested, but does have mild dry cough. Denies prior issues with anesthesia. No fevers or chills. Allergies Allergy/AdvReac Type Severity Reaction Status Date / Time Sulfa (Sulfonamide Allergy Mild HIVES Verified 05/25/23 09:28 Antibiotics) Home Medications Medication Instructions Recorded Confirmed Type cholecalciferol (vitamin D3) 25 1,000 units PO QAM 04/13/19 06/01/23 History mcg (1,000 unit) capsule levonorgestrel 21 mcg/24 hours (8 1 ea intrauterine CONTINOUS 02/27/22 06/01/23 History yrs) 52 mg intrauterine device (Mirena) levothyroxine 50 mcg tablet 50 mcg PO DAILY #90 tabs 10/06/22 06/01/23 Rx tirzepatide 5 mg/0.5 mL 7.5 ml subcut WK 10/25/22 06/01/23 History subcutaneous pen injector (Mounlucreciaro) oxycodone 5 mg tablet 5 - 10 mg (1 - 2 x 5 mg) PO 05/31/23 06/01/23 Rx .[id number] PRN pain #15 tabs Patient History Medical History (Updated 05/31/23 @ 07:40 by Braulio Prajapati DO) Small bowel mass Hx of iron deficiency anemia Hx of migraines yrs ago History of COVID-19 2019- fatigue; resolved Mild obstructive sleep apnea NO DEVICE; weight loss has helped Hypothyroidism Prediabetes mounjaro weekly injections IUD (intrauterine device) in place Mirena 01/2020 Lyme disease hx 2018- treated Surgical History (Updated 05/26/23 @ 11:18 by Guerda Mccarty, JUANITA) History of bowel resection (05/25/23) Laparoscopic Partial Small Bowel Resection(Not Applicable) - Braulio Prajapati DO H/O colposcopy with cervical biopsy 10/19/2010 History of endometrial biopsy 02/28/2017 H/O colonoscopy with polypectomy 11/29/2017 History of nasal surgery H/O wisdom tooth extraction H/O section Family History Son Anxiety Diabetes Seizure Mother Cervical cancer Lung cancer Lung disease Grandmother (Maternal) Colorectal cancer Heart disease Father Hypertension Sister Hypertension Family/Other Myocardial infarction Uncle Pancreatic cancer Daughter Murmur, heart Other Cancer Denies family history of Ovarian cancer Breast cancer Social History Smoking Status: Never smoker Second Hand Exposure: No; Do You Dip or Chew Tobacco: No; Hx Alcohol Use: Yes Alcohol type: beer and wine Hx Substance Use: No Preferred Language: Japanese Communication Ability: Effective Visual Impairment: No Limitations Hearing Ability: Normal 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 Beliefs That Will Affect Care: None marital status: Single Current Living Situation: Family current occupational status: employed current occupation: Nurse Assistant How many Children do You have: 3 Feels Safe at Home: Yes Childhood Exposure to Second-Hand Smoke: No Diet: regular caffeine: Yes during the past year weight has: decreased > 10 lbs Dental Care, Regularly: Yes Physical Activity Frequency: 1-2 Times per Week Seatbelt Use: always Sunscreen Use: Yes Assistive Devices: None Review of Systems Review of Systems: All systems reviewed & are unremarkable except as noted in Subjective Physical Exam Physical Exam: General: WN/WD, NAD, VS as above HEENT: Fluid behind tympanic tembrane bilaterally. No erythema. No pain with movement of external ear. MMM, no edema or erythema. Resp: normal respiratory effort, lungs clear to auscultation CV: RRR, no murmur Results & Data Results & Data Vital Signs (Past 12 Hours) Vital Signs Temp Pulse Resp BP Pulse Ox O2 Del Method 05/30/23 07:43 67 104/66 97 Room Air 05/30/23 07:30 36.6 C 74 18 94/58 L 97 Room Air Laboratory Results CBC reviewed PG Care Time/CCT Total # of Minutes Spent Total Time Spent with Patient: Total time spent is greater than 50% in coordination of care (as documented) at patient's floor/unit and/or counseling patient: Coding Level of Care Code 42622 IN/OBS CONSULT LVL 3,45M Diagnoses Right ear pain H92.01 S/P small bowel resection Z90.49
[2023-05-30] MEDS: FEXOFENADINE HCL 180 MG TAB PO SCH (09:54)
[2023-05-30] MEDS: SOD PHOSPHATE/SOD BIPHOSPHATE ENEMA 132 ML BTL PR SCH ×2 (09:54→20:42)
[2023-05-30] MEDS: PSEUDOEPHEDRINE HCL 30 MG TAB PO SCH (09:54)
[2023-05-30] MEDS: ACETAMINOPHEN 325 MG TAB PO PRN (20:42)
[2023-05-31] MEDS: IBUPROFEN 600 MG TAB PO SCH ×2 (00:28→08:37)
--- NOTE | 2023-05-31 07:41 | Surgery Progress Note ---
Date of Service May 31, 2023 Assessment & Plan (1) Neuroendocrine neoplasm of small intestine: Plan: had a long discussion about her path report with her and her daughter ok for discharge today instructions given. f/u in 1 week Admission and Anticipated Discharge Date Admission Date: May 25, 2023 Subjective pt seen. feeling much better today +bm pain improved Physical Exam Physical Exam: alert. nad abd: soft. nt. incisions look good. Results & Data Vital Signs (Past 12 Hours) Vital Signs Temp Pulse Resp BP Pulse Ox O2 Del Method 05/31/23 06:55 36.7 C 78 15 115/72 95 Room Air 05/30/23 23:22 36.7 C 68 18 120/78 95 Room Air PG Care Time/CCT Total # of Minutes Spent Total Time Spent with Patient: Total time spent is greater than 50% in coordination of care (as documented) at patient's floor/unit and/or counseling patient: Coding Level of Care Code 36836 Post Operative Follow-Up Diagnoses Neuroendocrine neoplasm of small intestine D3A.8
[2023-05-31 08:06] VITALS: RESP 14; TEMP 97.7; O2SAT 97
[2023-05-31] MEDS: INSULIN ASPART PER UNIT CHARGE SC SCH (08:36)
[2023-05-31 08:37] LABS: Basophils # (auto) 0.05 K/uL (0.00-0.20); Basophils % (auto) 0.9 %; Eosinophils # (auto) 0.39 K/uL (0.00-0.50); Eosinophils % (auto) 6.9 %; Hematocrit (blood only) 36.6 % (37.0-47.0); Hemoglobin 12.4 g/dl (12.0-16.0); Immature Granulocytes # (auto) 0.01 K/uL (0.01-0.20); Immature Granulocytes % (auto) 0.2 %; Lymphocytes # (auto) 1.73 K/uL (1.20-3.40); Lymphocytes % (auto) 30.6 %; Mean Corpuscular Hemoglobin 28.1 pg (25.0-34.0); Mean Corpuscular Hgb Conc 33.9 g/dL (32.0-36.0); Mean Corpuscular Volume 82.8 fL (80.0-100.0); Mean Platelet Volume 9.8 fL (9.4-12.4); Monocytes # (auto) 0.45 K/uL (0.11-0.59); Neutrophils # (auto) 3.03 K/uL (1.40-6.50); Neutrophils % (auto) 53.4 %; Platelet Count 179 K/uL (130-400); RDW Coefficient of Variation 13.1 % (11.5-14.5); RDW Standard Deviation 39.4 fL (36.4-46.3); Red Blood Count 4.42 M/uL (4.20-5.40); White Blood Count 5.66 K/ul (4.8-10.8)
[2023-05-31] MEDS: FEXOFENADINE HCL 180 MG TAB PO SCH (08:37)
[2023-05-31] MEDS: LEVOTHYROXINE SODIUM 50 MCG TABLET PO SCH (08:37)
[2023-05-31] MEDS: PSEUDOEPHEDRINE HCL 30 MG TAB PO SCH (08:37)
[2023-05-31 08:58] LABS: BUN Creatinine Ratio 8.6 (10-20); Calcium 9.5 mg/dl (8.6-10.3); Creatinine Clr Calc Pharmacy 106.2 ml/min; Est GFR (African American) 122.8 ml/min; Potassium 3.7 mmol/L (3.5-5.1)
--- NOTE | 2023-05-31 09:41 | Discharge Summary ---
Date of Service May 31, 2023 Admission HPI Per Admitting Provider Concepcion is here for a small bowel resection with a 2 cm mesenteric mass in the right lower quadrant. Abdominal pain. There is been no major status to her health issues since I had seen her last in the office. Principal Diagnosis Neuroendocrine neoplasm of small intestine Discharge Exam alert oriented pleasant Constitutional well developed, cooperative and comfortable; no acute distress Respiratory normal respiratory effort, lungs clear to auscultation Cardiovascular Rate/Rhythm: regular rate and regular rhythm Gastrointestinal (Abdomen) Inspection/Auscultation: normal bowel sounds and + abdominal surgical incision; abdomen not distended Percussion/Palpation: + abdomen tender and abdomen soft; no guarding Musculoskeletal no cyanosis or clubbing, extremities motor strength /5 Discharge Data Allergies Allergy/AdvReac Type Severity Reaction Status Date / Time Sulfa (Sulfonamide Allergy Mild HIVES Verified 05/25/23 09:28 Antibiotics) Consultations 05/29/23 17:13 Consult Hospitalist Routine Procedures Performed Operation Date: 05/25/23 10:55 Actual Procedures p Laparoscopic Partial Small Bowel Resection(Not Applicable) - Braulio Prajapati, DO Hospital Course (1) Neuroendocrine neoplasm of small intestine: (2) S/P small bowel resection: Plan Patient underwent an elective Laparoscopic Partial Small Bowel Resection with Dr. Prajapati on 05/25/23 for a small bowel mass. She was admitted to the hospital post procedure for care and observation. She had a Mendoza catheter that was removed on post operative day one, and was voiding on her own with no complaints after removal. Her diet started as clear liquids and slowly advanced to full liquids. She tolerated her diet without nausea and vomiting. On post operative day five she remained without a bowel movement however was passing flatus. She was ordered an enema and fluid bolus to assist with bowel function. She had a successful bowel movement on post operative day five. She was ambulating the halls and reported pain tolerable with PO pain medication. She had a complaint of right sided ear pain and the hospitalist were consulted and noted a fluid collection without signs of infection. She was ordered Rubi and Pseudoephedrine. Patient's blood sugar was monitored ACHS, a CBC with differential and BMP were drawn daily and electrolytes were repleted as needed. She remained without signs of post operative infection and her vital signs remained stabled throughout the entire hospital course. Dr. Prajapati reviewed the pathology results of the small bowel mass with the patient and answered all questions. She was deemed stable for discharge on post operative day six 05/31/23 and was given diet, return precautions, pain medication prescription, and follow appointment information. Patient is encouraged to the office with questions or concerns. Total Time Total Time Spent Total Time Spent (In Minutes): 30 Discharge Plan Discharge Items Patient Disposition: Home - Self-Care Reason For Visit: Small Bowel Mass Discharge Diagnosis: Laparoscopic Partial Small Bowel Resection Activity: As commented below Lifting: No more than 10 pounds Bathing Comment: shower, no pools or bath for 2 weeks Exercise/Sports: Wait until after follow-up appointment Non-emergency contact: Surgeon Call non-emergency contact if: you have any medication questions, your pain is unusual for you, your temperature is above 101.5, your wound has increased redness, your wound has increased drainage and your wound pain has increased Follow-up/Referrals: Carrie Navarrete MD [Primary Care Provider] - Braulio Prajapati DO [Surgeon] - 06/07/23 2:30 pm (call office for a follow up in 2 weeks ) Diet: Full liquid and Low Fiber Diet Comment: low fiber Addtl Attending Provider Instructions: You have surgical glue called dermabond on your surgical site incisions. You may shower with this on. This will tend to come off within a couple of weeks. Do not pick at it. You may purchase Tylenol over the counter if needed for additional pain control over the next few days. Take per manufacturers instructions. Do Not take more than 3 grams of Tylenol in 24 hours. You may take Ibuprofen 600mg every 8 hours as needed for pain. Please try to use the Tylenol and ibuprofen , a narcotic pain medication oxycodone was sent to your pharmacy if your pain is not controlled you may take that. Pending Studies at Discharge: Yes Studies:: surgical pathology Stand-Alone Forms: [facility], Pain - Opioid Pain Management, Smoking Cessation Medications and DC Order Prescriptions: New oxycodone 5 mg tablet 5 - 10 mg PO .a1b-n0h MDD no more than 6 tabs in 24hours PRN (Reason: pain) Qty: 15 0RF Rx Instructions: Take one to two tablets by mouth every 4-6 hours as needed for pain. Continued levothyroxine 50 mcg tablet 50 mcg PO DAILY Qty: 90 3RF cholecalciferol (vitamin D3) 1,000 unit capsule 1,000 units PO QAM Mounjaro 5 mg/0.5 mL pen injector 7.5 ml subcut WK Mirena 20 mcg/24 hours (5 yrs) 52 mg intrauterine device 1 ea intrauterine CONTINOUS Discharge Orders: Discharge Order (Routine); Ordered 05/31/23 Ordered By: Evangelina De Leon/Other Patient Handouts: Low-Fiber Diet Admission Data Admit Date/Time: 05/25/23 13:00 Attending Provider: Braulio Prajapati Admit Provider: Braulio Prajapati Primary Care Provider: Carrie Navarrete Other Providers: Zaheer Draper Other Interventions: Discharge Summary Assessment (RN) Last Done: 05/31/23 10:29 Coding Level of Care Code 09733 IN/OBS DISCH 30 MIN/LESS Diagnoses Neuroendocrine neoplasm of small intestine D3A.8 S/P small bowel resection Z90.49
[2023-05-31 10:30] VITALS: BP 115/72; PULSE 78
== END 2023-05-31 12:53 | disposition home or self-care (01) | DRG 331 ==
LOC: ASU 09:10 → 3N 13:00 → UNDODISIN 05-31 10:32
DX: Z86.16 Personal history of COVID-19; Z68.22 Body mass index [BMI] 22.0-22.9, adult; Z88.2 Allergy status to sulfonamides; H92.01 Otalgia, right ear; E66.9 Obesity, unspecified; C7A.019 Malignant carcinoid tumor of the small intestine, unspecified portion; G47.33 Obstructive sleep apnea (adult) (pediatric)